=== PATIENT | female | born 1955 | race Caucasian/White ===

== ENCOUNTER 2017-03-28 12:29 | Inpatient (IN) | payer MEDICARE ==
[~2017-03-28] VITALS: Ht 157.5 cm; Wt 81.0 kg
[~2017-03-28 12:29] MED LIST: ACID1TAB7 PO; ALBU8.5H5 INH; AMIT150T PO; CEFD300C37 PO; DOXY100T PO; FLUT1DIS5 IH; GABA300C10 PO; HYDR25TA6 PO; IPRA3AMP NPPB; LEVO500T33 PO; LEVO750T26 PO; LISI1TAB7 PO; LORA-446 PO; LOSA100T6 PO; METH-356 PO; METH750T87 PO; MORP-52 PO; MORP60TA PO; MORP60TA22 PO; NICO1PAT4 TD; OMEP-110 PO; OXYC-229 PO; OXYC10TA6 PO; OXYC1TAB9 PO; OXYGEN INH; POLY17PO5 PO; PRED10TA PO; PRED20TA PO; Prednisone PO; SERT100T PO; TIOT18CA INH; VERA360C2 PO
[2017-03-28] MEDS ORDERED: ALBUTEROL/IPRATROPIUM 2.5MG/0.5MG, 3 ML NPPB ONE (13:30)
[2017-03-28] MEDS ORDERED: SODIUM CHLORIDE FLUSH 10ML SYR IVF ONE (13:30)
[2017-03-28] MEDS ORDERED: SODIUM CHLORIDE 0.9% 1,000ML IVBOLUS ONE (13:30)
[2017-03-28] MEDS ORDERED: MORPHINE SULFATE 4 MG/ML, 1ML IVPush PRN (13:30)
[2017-03-28] MEDS ORDERED: methylPREDNISolone SOD SUCC 125 MG/2 ML IVP ONE (13:30)
[2017-03-28 13:58] LABS: ASPARTATE AMINO TRANSFERASE 11 U/L (15-37); BLOOD UREA NITROGEN 13 mg/dL (7-18)
[2017-03-28] MEDS ORDERED: ALBUTEROL/IPRATROPIUM 2.5MG/0.5MG, 3 ML ONE (14:07)
[2017-03-28] MEDS ORDERED: methylPREDNISolone SOD SUCC 125 MG/2 ML ONE (14:40)
[2017-03-28] MEDS ORDERED: MORPHINE SULFATE 4 MG/ML, 1ML ONE (14:40)
[2017-03-28] MEDS ORDERED: POTASSIUM CHLORIDE 20 MEQ TAB.ER.PRT PO ONE (15:30)
[2017-03-28] MEDS ORDERED: METHADONE 10 MG TABLET PO ONE (15:30)
[2017-03-28] MEDS ORDERED: ALBUTEROL SULFATE 2.5 MG/3 ML NPPB ONE (15:30)
[2017-03-28] MEDS ORDERED: POLYETHYLENE GLYCOL 17 GM PACKET PO PRN (16:30)
[2017-03-28] MEDS ORDERED: ACETAMINOPHEN 325 MG TABLET PO PRN (16:30)
[2017-03-28] MEDS ORDERED: DOCUSATE 100 MG CAPSULE PO PRN (16:30)
[2017-03-28] MEDS ORDERED: FUROSEMIDE 20 MG/2 ML IV ONE (16:30)
[2017-03-28] MEDS ORDERED: GUAIFENESIN/DM 200-20MG, 10ML UDC PO PRN (16:30)
[2017-03-28] MEDS ORDERED: BISACODYL 10 MG SUPP PR PRN (16:30)
[2017-03-28] MEDS ORDERED: ONDANSETRON 2MG/ML, 2ML IVPush PRN (16:30)
[2017-03-28 16:55] VITALS: BP 115/71
[2017-03-28] MEDS: DOXYCYCLINE 100 MG in DEXTROSE 5% 250 ML IV SCH (17:24)
[2017-03-28] MEDS: ENOXAPARIN 40 MG/0.4 ML SQ SCH (17:25)
[2017-03-28] MEDS: methylPREDNISolone SOD SUCC 125 MG/2 ML IVPush SCH ×2 (17:25→23:02)
[2017-03-28 18:33] VITALS: BP 111/72
[2017-03-28] MEDS: OXYcodone/APAP 5/325MG TABLET PO PRN ×2 (18:36→23:09)
[2017-03-28] MEDS: ALBUTEROL/IPRATROPIUM 2.5MG/0.5MG, 3 ML NPPB SCH (19:18)
[2017-03-28] MEDS ORDERED: AMITRIPTYLINE 100 MG TABLET PO SCH (21:00)
[2017-03-28] MEDS: SODIUM CHLORIDE FLUSH 10ML SYR IVF SCH (21:52)
[2017-03-28] MEDS: SERTRALINE 100MG TABLET PO SCH (21:52)
[2017-03-28] MEDS: METHADONE 10 MG TABLET PO PRN (21:52)
[2017-03-28] MEDS: AMITRIPTYLINE 50 MG TABLET PO SCH (21:53)
[2017-03-29 02:56] VITALS: BP 128/76
[2017-03-29] MEDS: methylPREDNISolone SOD SUCC 125 MG/2 ML IVPush SCH ×3 (04:30→18:23)
[2017-03-29] MEDS: DOXYCYCLINE 100 MG in DEXTROSE 5% 250 ML IV SCH ×2 (04:30→15:51)
[2017-03-29] MEDS: OXYcodone/APAP 5/325MG TABLET PO PRN ×4 (04:45→20:09)
[2017-03-29 06:06] LABS: BLOOD UREA NITROGEN 18 mg/dL (7-18)
[2017-03-29] MEDS ORDERED: POTASSIUM CHLORIDE 20 MEQ TAB.ER.PRT PO ONE (07:00)
[2017-03-29 07:02] VITALS: BP 93/62
[2017-03-29] MEDS: ALBUTEROL/IPRATROPIUM 2.5MG/0.5MG, 3 ML NPPB SCH ×4 (07:35→18:18)
[2017-03-29] MEDS ORDERED: POTASSIUM CHLORIDE 20 MEQ TAB.ER.PRT PO SCH (08:00)
[2017-03-29] MEDS ORDERED: SERTRALINE 100MG TABLET PO SCH (09:00)
[2017-03-29] MEDS ORDERED: FUROSEMIDE 20 MG/2 ML IV SCH (09:00)
[2017-03-29] MEDS ORDERED: AMITRIPTYLINE 100 MG TABLET PO SCH (09:00)
[2017-03-29] MEDS: LOSARTAN 50MG TABLET PO SCH (09:08)
[2017-03-29] MEDS: HYDROCHLOROTHIAZIDE 25 MG TABLET PO SCH (09:09)
[2017-03-29] MEDS: SODIUM CHLORIDE FLUSH 10ML SYR IVF SCH ×2 (09:15→22:04)
[2017-03-29] MEDS: METHADONE 10 MG TABLET PO SCH (09:15)
[2017-03-29] MEDS: FLUTICASONE/VILANTEROL 200-25MCG/INH INH SCH (09:15)
[2017-03-29] MEDS ORDERED: NICOTINE 7 MG/24 HR PATCH.TD24 TD SCH (13:00)
[2017-03-29 14:02] VITALS: BP 110/70
[2017-03-29] MEDS ORDERED: NICOTINE 7 MG/24 HR PATCH.TD24 TD ONE (15:30)
[2017-03-29] MEDS: ENOXAPARIN 40 MG/0.4 ML SQ SCH (15:51)
[2017-03-29 19:26] VITALS: BP 107/65
[2017-03-29] MEDS: SERTRALINE 100MG TABLET PO SCH (20:09)
[2017-03-29] MEDS: AMITRIPTYLINE 50 MG TABLET PO SCH (20:09)
[2017-03-29] MEDS: METHADONE 10 MG TABLET PO PRN (22:03)
[2017-03-30] MEDS: methylPREDNISolone SOD SUCC 125 MG/2 ML IVPush SCH ×4 (00:42→18:37)
[2017-03-30] MEDS: OXYcodone/APAP 5/325MG TABLET PO PRN ×5 (00:53→19:52)
[2017-03-30 00:55] VITALS: BP 130/69
[2017-03-30] MEDS: DOXYCYCLINE 100 MG in DEXTROSE 5% 250 ML IV SCH ×2 (05:01→16:49)
[2017-03-30 05:51] LABS: BLOOD UREA NITROGEN 20 mg/dL (7-18)
[2017-03-30] MEDS: ALBUTEROL/IPRATROPIUM 2.5MG/0.5MG, 3 ML NPPB SCH ×4 (07:01→19:12)
[2017-03-30 07:18] VITALS: BP 97/63
[2017-03-30] MEDS: GUAIFENESIN ER 600 MG TABLET PO SCH ×2 (09:03→21:52)
[2017-03-30] MEDS: SODIUM CHLORIDE FLUSH 10ML SYR IVF SCH ×2 (09:03→21:00)
[2017-03-30] MEDS: HYDROCHLOROTHIAZIDE 25 MG TABLET PO SCH (09:04)
[2017-03-30] MEDS: LOSARTAN 50MG TABLET PO SCH (09:04)
[2017-03-30] MEDS: FLUTICASONE/VILANTEROL 200-25MCG/INH INH SCH (09:04)
[2017-03-30] MEDS: METHADONE 10 MG TABLET PO SCH (09:04)
[2017-03-30 13:17] VITALS: BP 119/74
[2017-03-30] MEDS: ENOXAPARIN 40 MG/0.4 ML SQ SCH (16:50)
[2017-03-30] MEDS: NICOTINE 21 MG/24 HR PATCH.TD24 TD SCH (16:50)
[2017-03-30 20:44] VITALS: BP 114/71
[2017-03-30] MEDS: METHADONE 10 MG TABLET PO PRN (21:52)
[2017-03-30] MEDS: SERTRALINE 100MG TABLET PO SCH (21:52)
[2017-03-30] MEDS: AMITRIPTYLINE 50 MG TABLET PO SCH (21:52)
[2017-03-31] MEDS: OXYcodone/APAP 5/325MG TABLET PO PRN ×6 (00:19→23:01)
[2017-03-31] MEDS: methylPREDNISolone SOD SUCC 125 MG/2 ML IVPush SCH ×4 (00:20→18:09)
[2017-03-31 01:34] VITALS: BP 103/66
[2017-03-31] MEDS: DOXYCYCLINE 100 MG in DEXTROSE 5% 250 ML IV SCH ×2 (05:12→18:06)
[2017-03-31 06:03] LABS: BLOOD UREA NITROGEN 21 mg/dL (7-18)
[2017-03-31] MEDS: ALBUTEROL/IPRATROPIUM 2.5MG/0.5MG, 3 ML NPPB SCH ×2 (06:45→20:54)
[2017-03-31 07:54] VITALS: BP 101/65
[2017-03-31] MEDS: METHADONE 10 MG TABLET PO SCH (10:25)
[2017-03-31] MEDS: GUAIFENESIN ER 600 MG TABLET PO SCH ×2 (10:26→20:49)
[2017-03-31] MEDS: HYDROCHLOROTHIAZIDE 25 MG TABLET PO SCH (10:26)
[2017-03-31] MEDS: LOSARTAN 50MG TABLET PO SCH (10:26)
[2017-03-31] MEDS: FLUTICASONE/VILANTEROL 200-25MCG/INH INH SCH (10:26)
[2017-03-31] MEDS: SODIUM CHLORIDE FLUSH 10ML SYR IVF SCH ×2 (10:26→22:03)
[2017-03-31] MEDS: NICOTINE 21 MG/24 HR PATCH.TD24 TD SCH (10:28)
[2017-03-31 15:20] VITALS: BP 106/70
[2017-03-31] MEDS: ENOXAPARIN 40 MG/0.4 ML SQ SCH (16:30)
[2017-03-31] MEDS ORDERED: BISACODYL 10 MG SUPP PR PRN (19:30)
[2017-03-31] MEDS ORDERED: POLYETHYLENE GLYCOL 17 GM PACKET PO PRN (19:30)
[2017-03-31] MEDS ORDERED: DOCUSATE 100 MG CAPSULE PO PRN (19:30)
[2017-03-31] MEDS: MONTELUKAST 10 MG TABLET PO SCH (20:49)
[2017-03-31] MEDS: METHADONE 10 MG TABLET PO PRN (20:49)
[2017-03-31] MEDS: AMITRIPTYLINE 50 MG TABLET PO SCH (20:49)
[2017-03-31] MEDS: SERTRALINE 100MG TABLET PO SCH (20:49)
[2017-03-31 20:51] VITALS: BP 126/81
[2017-04-01] MEDS: methylPREDNISolone SOD SUCC 125 MG/2 ML IVPush SCH ×2 (00:36→06:31)
[2017-04-01 01:21] VITALS: BP 110/67
[2017-04-01] MEDS: OXYcodone/APAP 5/325MG TABLET PO PRN ×5 (05:00→23:43)
[2017-04-01 08:00] VITALS: BP 111/69
[2017-04-01] MEDS: SODIUM CHLORIDE FLUSH 10ML SYR IVF SCH ×2 (09:00→20:52)
[2017-04-01] MEDS: ALBUTEROL/IPRATROPIUM 2.5MG/0.5MG, 3 ML NPPB SCH (09:35)
[2017-04-01] MEDS: FLUTICASONE/VILANTEROL 200-25MCG/INH INH SCH (09:39)
[2017-04-01] MEDS: NICOTINE 21 MG/24 HR PATCH.TD24 TD SCH (09:40)
[2017-04-01] MEDS: LOSARTAN 50MG TABLET PO SCH (09:40)
[2017-04-01] MEDS: GUAIFENESIN ER 600 MG TABLET PO SCH ×2 (09:40→20:53)
[2017-04-01] MEDS: HYDROCHLOROTHIAZIDE 25 MG TABLET PO SCH (09:40)
[2017-04-01] MEDS: METHADONE 10 MG TABLET PO SCH (09:41)
[2017-04-01] MEDS: DOXYCYCLINE 100 MG in DEXTROSE 5% 250 ML IV SCH ×2 (09:43→22:04)
[2017-04-01 14:00] VITALS: BP 109/70
[2017-04-01] MEDS: ENOXAPARIN 40 MG/0.4 ML SQ SCH (16:30)
[2017-04-01 20:05] VITALS: BP 97/63
[2017-04-01] MEDS ORDERED: ALBUTEROL/IPRATROPIUM 2.5MG/0.5MG, 3 ML NPPB PRN (20:30)
[2017-04-01] MEDS: METHADONE 10 MG TABLET PO PRN (20:52)
[2017-04-01] MEDS: AMITRIPTYLINE 50 MG TABLET PO SCH (20:52)
[2017-04-01] MEDS: SERTRALINE 100MG TABLET PO SCH (20:53)
[2017-04-01] MEDS: MONTELUKAST 10 MG TABLET PO SCH (20:53)
[2017-04-02 01:05] VITALS: BP 99/68
[2017-04-02] MEDS: OXYcodone/APAP 5/325MG TABLET PO PRN ×3 (03:33→14:34)
[2017-04-02 08:00] VITALS: BP 92/54
[2017-04-02] MEDS ORDERED: GUAI600T22 PO (08:33)
[2017-04-02] MEDS ORDERED: PRED20TA PO (08:33)
[2017-04-02] MEDS ORDERED: MONT10TA9 PO (08:33)
[2017-04-02] MEDS ORDERED: DOXY100T PO (08:34)
[2017-04-02] MEDS: LOSARTAN 50MG TABLET PO SCH (09:00)
[2017-04-02] MEDS: SODIUM CHLORIDE FLUSH 10ML SYR IVF SCH (09:00)
[2017-04-02] MEDS: METHADONE 10 MG TABLET PO SCH (09:15)
[2017-04-02] MEDS: FLUTICASONE/VILANTEROL 200-25MCG/INH INH SCH (09:16)
[2017-04-02] MEDS: NICOTINE 21 MG/24 HR PATCH.TD24 TD SCH (09:17)
[2017-04-02] MEDS: GUAIFENESIN ER 600 MG TABLET PO SCH (09:18)
[2017-04-02] MEDS: HYDROCHLOROTHIAZIDE 25 MG TABLET PO SCH (09:19)
[2017-04-02] MEDS: DOXYCYCLINE 100 MG in DEXTROSE 5% 250 ML IV SCH (10:28)
[2017-04-02 12:59] VITALS: BP 117/72
== END 2017-04-02 17:00 | disposition home or self-care (01) | DRG 291 ==
LOC: ED 15:08 → EDIP 15:16 → 3NE 16:22 → DCLOUNGE 04-02 16:12
PROVIDERS: ADMIT Hospitalist
DX: I11.0 Hypertensive heart disease with heart failure (principal); J96.21 Acute and chronic respiratory failure with hypoxia; J44.1 Chronic obstructive pulmonary disease with (acute) exacerbation; J98.11 Atelectasis; I50.33 Acute on chronic diastolic (congestive) heart failure; D72.829 Elevated white blood cell count, unspecified; E87.6 Hypokalemia; F17.200 Nicotine dependence, unspecified, uncomplicated; F32.9 Major depressive disorder, single episode, unspecified; T38.0X5A Adverse effect of glucocorticoids and synthetic analogues, initial encounter; F41.9 Anxiety disorder, unspecified; G89.29 Other chronic pain; I27.2 Other secondary pulmonary hypertension; M79.7 Fibromyalgia; I95.9 Hypotension, unspecified; M54.9 Dorsalgia, unspecified; E78.5 Hyperlipidemia, unspecified; M85.80 Other specified disorders of bone density and structure, unspecified site; Z88.8 Allergy status to other drugs, medicaments and biological substances; Z99.81 Dependence on supplemental oxygen; Z90.710 Acquired absence of both cervix and uterus; Z90.89 Acquired absence of other organs; Y92.89 Other specified places as the place of occurrence of the external cause
CPT/HCPCS: 36415; 71010; 80048; 80053; 83735; 85025; 93005; 94640; 96374; 96375; J1650; J7060; J7620; J1940; J2930; J7030; J7512

== ENCOUNTER 2017-10-01 17:19 | Inpatient (IN) | payer MEDICARE ==
[~2017-10-01] VITALS: Ht 157.5 cm; Wt 72.2 kg
[~2017-10-01 17:19] MED LIST changes: +GUAI600T31 PO; -LEVO500T33 PO; +LEVO500T47 PO; +MONT10TA9 PO; +NICO-486 TD; -NICO1PAT4 TD; -OXYC-229 PO; +OXYC-307 PO; -SERT100T PO; +SERT20OR PO
[2017-10-01] MEDS ORDERED: ALBUTEROL/IPRATROPIUM 2.5MG/0.5MG, 3 ML NPPB ONE (17:30)
[2017-10-01] MEDS ORDERED: OXYC10TA6 PO (17:48)
[2017-10-01] MEDS ORDERED: ALBUTEROL/IPRATROPIUM 2.5MG/0.5MG, 3 ML ONE (17:51)
[2017-10-01 18:40] LABS: BASOPHILS # (AUTO) 0.03 x10^3/uL (0-0.1); BASOPHILS % (AUTO) 0 % (0-1); EOSINOPHILS # (AUTO) 0.01 x10^3/uL (0-0.4); EOSINOPHILS % (AUTO) 0 % (1-7); LYMPHOCYTES # (AUTO) 2.36 x10^3/uL (1-3.4); LYMPHOCYTES % (AUTO) 16 % (22-44); MD NO; MEAN CORPUSCULAR HEMOGLOBIN 29.7 pg (27.0-34.8); MEAN CORPUSCULAR HGB CONC 33.6 g/dL (32.4-35.8); MEAN CORPUSCULAR VOLUME 88.4 fL (80-100); MEAN PLATELET VOLUME 8.9 fL (7.4-10.4); MONOCYTES # (AUTO) 0.79 x10^3/uL (0.2-0.8); MONOCYTES % (AUTO) 6 % (2-9); NEUTROPHILS % (AUTO) 78 % (42-75); PLATELET COUNT 336 x10^3/uL (130-400); RED BLOOD COUNT 5.34 x10^6/uL (3.82-5.3); RED CELL DISTRIBUTION WIDTH 13.9 % (9.6-15.2)
[2017-10-01] MEDS ORDERED: OXYcodone/APAP 5/325MG TABLET ONE ×2 (18:44→21:01)
[2017-10-01 18:58] LABS: ALBUMIN 3.8 g/dL (3.4-5.0); ANION GAP 7 mmol/L (5-15); CALCIUM 9.1 mg/dL (8.5-10.1); CHLORIDE 109 mmol/L (98-107); CREATININE 0.69 mg/dL (0.55-1.02)
[2017-10-01] MEDS ORDERED: OXYcodone/APAP 5/325MG TABLET PO ONE ×2 (19:00→21:00)
[2017-10-01 19:02] LABS: TROPONIN I < 0.015 ng/mL (0.000-0.045)
[2017-10-01] MEDS ORDERED: SODIUM CHLORIDE FLUSH 10ML SYR IVF PRN (21:30)
[2017-10-02 00:08] VITALS: BP 151/84
[2017-10-02] MEDS ORDERED: HYDROCHLOROTHIAZIDE 25 MG TABLET PO SCH ×2 (01:30→21:00)
[2017-10-02] MEDS ORDERED: SERTRALINE 100MG TABLET PO SCH ×2 (01:30→21:00)
[2017-10-02] MEDS ORDERED: LOSARTAN 50MG TABLET PO SCH ×2 (01:30→21:00)
[2017-10-02] MEDS ORDERED: LISINOPRIL 20 MG TABLET PO SCH ×2 (01:30→21:00)
[2017-10-02] MEDS ORDERED: OXYcodone IR 5MG TABLET ONE (01:55)
[2017-10-02] MEDS: OXYcodone IR 5MG TABLET PO SCH ×5 (01:57→21:57)
[2017-10-02] MEDS: METHADONE 10 MG TABLET PO SCH ×3 (01:57→21:57)
[2017-10-02] MEDS: AMITRIPTYLINE 50 MG TABLET PO SCH ×2 (02:33→21:58)
[2017-10-02] MEDS: NICOTINE 14MG/24 HR PATCH.TD24 TD SCH (02:35)
[2017-10-02] MEDS ORDERED: OXYcodone IR 5MG TABLET PO SCH (03:00)
[2017-10-02] MEDS ORDERED: ALBUTEROL SULFATE 2.5 MG/3 ML NPPB PRN (03:30)
[2017-10-02] MEDS ORDERED: ALBUTEROL/IPRATROPIUM 2.5MG/0.5MG, 3 ML NPPB SCH (07:00)
[2017-10-02 07:22] VITALS: BP 97/60
[2017-10-02 12:44] VITALS: BP 103/71
[2017-10-02 19:59] VITALS: BP 112/66
[2017-10-03 02:45] VITALS: BP 90/60
[2017-10-03] MEDS: OXYcodone IR 5MG TABLET PO SCH ×3 (03:00→14:48)
[2017-10-03] MEDS: NICOTINE 14MG/24 HR PATCH.TD24 TD SCH (04:05)
[2017-10-03] MEDS: METHADONE 10 MG TABLET PO SCH (09:36)
[2017-10-03 09:40] VITALS: BP 99/59
[2017-10-03 14:50] VITALS: BP 90/60
== END 2017-10-03 16:07 | disposition home or self-care (01) | DRG 191 ==
LOC: ED 20:16 → EDIP 22:37 → 4NOR 23:32 → DCLOUNGE 10-03 16:03
PROVIDERS: ADMIT Internal Medicine; ATTEND Internal Medicine
DX: J44.1 Chronic obstructive pulmonary disease with (acute) exacerbation (principal); F11.20 Opioid dependence, uncomplicated; I11.0 Hypertensive heart disease with heart failure; Z99.81 Dependence on supplemental oxygen; R65.10 Systemic inflammatory response syndrome (SIRS) of non-infectious origin without acute organ dysfunction; I50.9 Heart failure, unspecified; D72.829 Elevated white blood cell count, unspecified; E78.5 Hyperlipidemia, unspecified; G47.00 Insomnia, unspecified; G89.4 Chronic pain syndrome; M79.7 Fibromyalgia; M85.80 Other specified disorders of bone density and structure, unspecified site; Z79.899 Other long term (current) drug therapy; Z87.891 Personal history of nicotine dependence
CPT/HCPCS: 36415; 71046; 80048; 82040; 83605; 83880; 84145; 84484; 85025; 87040; 93005; 94640; J7620; J7512

== ENCOUNTER 2017-11-03 12:26 | Emergency (ER) | payer MEDICARE ==
[~2017-11-03] VITALS: Ht 157.5 cm; Wt 74.6 kg
[2017-11-03] MEDS ORDERED: methylPREDNISolone SOD SUCC 125 MG/2 ML ONE (13:09)
[2017-11-03] MEDS ORDERED: ASPIRIN 81 MG TABLET CHEW ONE (13:29)
[2017-11-03] MEDS ORDERED: ALBUTEROL/IPRATROPIUM 2.5MG/0.5MG, 3 ML NPPB SCH (13:30)
[2017-11-03] MEDS ORDERED: methylPREDNISolone SOD SUCC 125 MG/2 ML IVP ONE (13:30)
[2017-11-03] MEDS ORDERED: ASPIRIN 81 MG TABLET CHEW PO ONE (13:30)
[2017-11-03] MEDS ORDERED: SODIUM CHLORIDE FLUSH 10ML SYR IVF ONE (13:30)
[2017-11-03 13:33] LABS: BASOPHILS # (AUTO) 0.04 x10^3/uL (0-0.1); BASOPHILS % (AUTO) 0 % (0-1); EOSINOPHILS # (AUTO) 0.04 x10^3/uL (0-0.4); EOSINOPHILS % (AUTO) 0 % (1-7); LYMPHOCYTES # (AUTO) 2.29 x10^3/uL (1-3.4); LYMPHOCYTES % (AUTO) 23 % (22-44); MD NO; MEAN CORPUSCULAR VOLUME 88.3 fL (80-100); MEAN PLATELET VOLUME 8.9 fL (7.4-10.4); MONOCYTES # (AUTO) 0.46 x10^3/uL (0.2-0.8); MONOCYTES % (AUTO) 5 % (2-9); NEUTROPHILS # (AUTO) 7.34 x10^3/uL (1.8-6.8); NEUTROPHILS % (AUTO) 72 % (42-75); PLATELET COUNT 348 x10^3/uL (130-400); RED BLOOD COUNT 5.33 x10^6/uL (3.82-5.3); RED CELL DISTRIBUTION WIDTH 14.1 % (9.6-15.2)
[2017-11-03 13:46] LABS: ALANINE AMINOTRANSFERASE 13 U/L (12-78); ALBUMIN 3.9 g/dL (3.4-5.0); ANION GAP 10 mmol/L (5-15); CALCIUM 8.7 mg/dL (8.5-10.1); CHLORIDE 107 mmol/L (98-107); CREATININE 0.67 mg/dL (0.55-1.02)
[2017-11-03 13:50] LABS: ALKALINE PHOSPHATASE 97 U/L (45-117); BILIRUBIN,TOTAL 0.4 mg/dL (0.2-1.0); TOTAL PROTEIN 8.2 g/dL (6.4-8.2)
[2017-11-03 13:54] LABS: INTERNATIONAL NORMALIZED RATIO 0.96 (0.93-1.1); PROTHROMBIN TIME 9.9 Seconds (9.6-11.5)
[2017-11-03] MEDS ORDERED: ALBUTEROL/IPRATROPIUM 2.5MG/0.5MG, 3 ML ONE ×2 (13:54→13:55)
[2017-11-03] MEDS ORDERED: HYDROcodone/APAP 5/325 TABLET ONE ×2 (14:46)
[2017-11-03] MEDS ORDERED: HYDROcodone/APAP 5/325 TABLET PO ONE (15:00)
[2017-11-03 15:36] VITALS: BP 141/84
== END 2017-11-03 15:49 | disposition home or self-care (01) ==
LOC: ED 14:25
DX: J44.1 Chronic obstructive pulmonary disease with (acute) exacerbation (principal); I11.0 Hypertensive heart disease with heart failure; I50.9 Heart failure, unspecified
CPT/HCPCS: 36415; 71045; 80053; 83880; 84484; 85025; 85610; 85730; 87040; 93005; 96374; 99285; J2930

== ENCOUNTER 2018-03-27 12:46 | Observation (INO) | payer MEDICARE ==
[~2018-03-27] VITALS: Ht 162.6 cm; Wt 77.4 kg
[~2018-03-27 12:46] MED LIST changes: +OXYC-432 PO; -OXYC1TAB9 PO; +SERT100T PO; -SERT20OR PO
[2018-03-27 14:07] LABS: BASOPHILS # (AUTO) 0.05 x10^3/uL (0-0.1); BASOPHILS % (AUTO) 0 % (0-1); EOSINOPHILS # (AUTO) 0.04 x10^3/uL (0-0.4); EOSINOPHILS % (AUTO) 0 % (1-7); LYMPHOCYTES # (AUTO) 1.98 x10^3/uL (1-3.4); LYMPHOCYTES % (AUTO) 17 % (22-44); MD NO; MEAN CORPUSCULAR HEMOGLOBIN 30.2 pg (27.0-34.8); MEAN CORPUSCULAR HGB CONC 33.7 g/dL (32.4-35.8); MEAN CORPUSCULAR VOLUME 89.7 fL (80-100); MEAN PLATELET VOLUME 8.8 fL (7.4-10.4); MONOCYTES # (AUTO) 0.48 x10^3/uL (0.2-0.8); MONOCYTES % (AUTO) 4 % (2-9); NEUTROPHILS # (AUTO) 9.18 x10^3/uL (1.8-6.8); NEUTROPHILS % (AUTO) 78 % (42-75); PLATELET COUNT 410 x10^3/uL (130-400); RED BLOOD COUNT 5.14 x10^6/uL (3.82-5.3); RED CELL DISTRIBUTION WIDTH 14.8 % (9.6-15.2)
[2018-03-27 14:20] LABS: ALANINE AMINOTRANSFERASE 13 U/L (12-78); ALBUMIN 3.6 g/dL (3.4-5.0); ANION GAP 6 mmol/L (5-15); CALCIUM 9.2 mg/dL (8.5-10.1); CHLORIDE 108 mmol/L (98-107); CREATININE 0.74 mg/dL (0.55-1.02)
[2018-03-27 14:25] LABS: ALKALINE PHOSPHATASE 95 U/L (45-117); BILIRUBIN,TOTAL 0.5 mg/dL (0.2-1.0); TOTAL PROTEIN 7.5 g/dL (6.4-8.2); TROPONIN I < 0.015 ng/mL (0.000-0.045)
[2018-03-27] MEDS ORDERED: ASPIRIN 81 MG TABLET CHEW PO ONE (15:00)
[2018-03-27] MEDS ORDERED: OXYcodone/APAP 5/325MG TABLET PO ONE (15:00)
[2018-03-27] MEDS ORDERED: ONDANSETRON ODT 4 MG PO ONE (15:00)
[2018-03-27] MEDS ORDERED: OXYcodone/APAP 5/325MG TABLET ONE (15:16)
[2018-03-27] MEDS ORDERED: ASPIRIN 81 MG TABLET CHEW ONE (15:16)
[2018-03-27] MEDS ORDERED: ONDANSETRON ODT 4 MG ONE (15:16)
[2018-03-27 16:00] VITALS: BP 112/74
[2018-03-27] MEDS ORDERED: ENOXAPARIN 40 MG/0.4 ML SQ SCH (16:30)
[2018-03-27] MEDS ORDERED: NICOTINE 21 MG/24 HR PATCH.TD24 TD SCH (16:30)
[2018-03-27] MEDS ORDERED: GUAIFENESIN/DM 200-20MG, 10ML UDC PO PRN (16:30)
[2018-03-27] MEDS ORDERED: ZOLPIDEM 5MG TABLET PO PRN (16:30)
[2018-03-27] MEDS ORDERED: ONDANSETRON ODT 4 MG PO PRN (16:30)
[2018-03-27] MEDS ORDERED: morphine SULFATE 10 MG/ML, 1ML IVPush PRN (16:30)
[2018-03-27] MEDS ORDERED: ACETAMINOPHEN 325 MG TABLET PO PRN (16:30)
[2018-03-27] MEDS ORDERED: AMLODIPINE 5 MG TABLET PO ONE (17:00)
[2018-03-27] MEDS ORDERED: LISINOPRIL 20 MG TABLET PO ONE (17:00)
[2018-03-27] MEDS ORDERED: TEMPLATE NON-FORMULARY MED. (Albuterol Sulfate** (Albuterol Sulfate Hfa**) 2 PUFF(S)) INH PRN (17:00)
[2018-03-27 17:42] LABS: TROPONIN I < 0.015 ng/mL (0.000-0.045)
[2018-03-27 18:04] LABS: HEMOGLOBIN A1C 5.7 % (4.2-6.3)
[2018-03-27 19:50] VITALS: BP 91/64
[2018-03-27] MEDS: METHADONE 10 MG TABLET PO SCH (20:39)
[2018-03-27] MEDS: LACTULOSE 10 GM/15 ML UDC PO SCH (20:39)
[2018-03-27] MEDS: SODIUM CHLORIDE FLUSH 10ML SYR IVF SCH (20:41)
[2018-03-27] MEDS: TEMPLATE NON-FORMULARY MED. (Fluticasone/Salmeterol** (Advair 500-50 Diskus**) 1 PUFF) IH SCH (21:00)
[2018-03-27] MEDS ORDERED: ATORVASTATIN 20 MG TABLET PO SCH (21:00)
[2018-03-27] MEDS ORDERED: SERTRALINE 100MG TABLET PO SCH (21:00)
[2018-03-27] MEDS ORDERED: OXYGEN INH SCH (21:00)
[2018-03-27] MEDS ORDERED: AMIT150T PO (21:03)
[2018-03-27] MEDS ORDERED: AMITRIPTYLINE 50 MG TABLET PO SCH (21:30)
[2018-03-28] VITALS (8 sets, daily range): BP systolic 81–114; BP diastolic 50–70
[2018-03-28 01:22] LABS: TROPONIN I < 0.015 ng/mL (0.000-0.045)
[2018-03-28] MEDS ORDERED: SODIUM CHLORIDE 0.9%, 500ML IVBOLUS ONE (03:00)
[2018-03-28 05:26] LABS: BASOPHILS # (AUTO) 0.16 x10^3/uL (0-0.1); BASOPHILS % (AUTO) 1 % (0-1); EOSINOPHILS # (AUTO) 0.11 x10^3/uL (0-0.4); EOSINOPHILS % (AUTO) 1 % (1-7); LYMPHOCYTES # (AUTO) 3.65 x10^3/uL (1-3.4); LYMPHOCYTES % (AUTO) 29 % (22-44); MD NO; MEAN CORPUSCULAR HEMOGLOBIN 30.4 pg (27.0-34.8); MEAN CORPUSCULAR HGB CONC 33.7 g/dL (32.4-35.8); MEAN CORPUSCULAR VOLUME 90.2 fL (80-100); MEAN PLATELET VOLUME 8.7 fL (7.4-10.4); MONOCYTES # (AUTO) 0.74 x10^3/uL (0.2-0.8); MONOCYTES % (AUTO) 6 % (2-9); NEUTROPHILS # (AUTO) 7.95 x10^3/uL (1.8-6.8); NEUTROPHILS % (AUTO) 63 % (42-75); PLATELET COUNT 328 x10^3/uL (130-400); RED CELL DISTRIBUTION WIDTH 15.1 % (9.6-15.2)
[2018-03-28 05:27] LABS: ALBUMIN 3.1 g/dL (3.4-5.0); ANION GAP 6 mmol/L (5-15); CALCIUM 8.6 mg/dL (8.5-10.1); CHLORIDE 106 mmol/L (98-107)
[2018-03-28 05:30] LABS: ALANINE AMINOTRANSFERASE 14 U/L (12-78); ALKALINE PHOSPHATASE 79 U/L (45-117); BILIRUBIN,TOTAL 0.4 mg/dL (0.2-1.0); CREATININE 1.26 mg/dL (0.55-1.02); TOTAL PROTEIN 6.6 g/dL (6.4-8.2)
[2018-03-28] MEDS: LACTULOSE 10 GM/15 ML UDC PO SCH (09:00)
[2018-03-28] MEDS ORDERED: TEMPLATE NON-FORMULARY MED. (Tiotropium Bromide** (Spiriva**) 18 MCG) INH SCH (09:00)
[2018-03-28] MEDS ORDERED: REGADENOSON 0.4 MG/5 ML SYRINGE ONE (09:00)
[2018-03-28] MEDS ORDERED: LOSARTAN 50MG TABLET PO SCH (09:00)
[2018-03-28] MEDS: TEMPLATE NON-FORMULARY MED. (Fluticasone/Salmeterol** (Advair 500-50 Diskus**) 1 PUFF) IH SCH (09:00)
[2018-03-28] MEDS ORDERED: SPIRONOLACTONE 25 MG TABLET PO SCH (09:00)
[2018-03-28] MEDS ORDERED: SERTRALINE 100MG TABLET PO SCH (09:00)
[2018-03-28] MEDS: METHADONE 10 MG TABLET PO SCH (12:26)
[2018-03-28] MEDS: SODIUM CHLORIDE FLUSH 10ML SYR IVF SCH (12:27)
== END 2018-03-28 16:50 | disposition home or self-care (01) ==
LOC: ED 14:43 → EDIP 14:44 → INTOOBSV 14:44 → ED 15:28 → 5SO 16:35 → DCLOUNGE 03-28 16:39
PROVIDERS: ADMIT Internal Medicine; ATTEND Internal Medicine
DX: R07.9 Chest pain, unspecified (principal); I11.0 Hypertensive heart disease with heart failure; J44.9 Chronic obstructive pulmonary disease, unspecified; I73.9 Peripheral vascular disease, unspecified; I50.9 Heart failure, unspecified; G89.4 Chronic pain syndrome; F17.210 Nicotine dependence, cigarettes, uncomplicated; F11.20 Opioid dependence, uncomplicated; Z79.899 Other long term (current) drug therapy
CPT/HCPCS: 0399T; 36415; 71046; 78452; 80053; 83036; 83880; 84484; 85025; 85379; 93005; 93017; 93306; 93922; 99285; A9502; C9898; G0378; J2785; J7040; Q0162

== ENCOUNTER 2019-07-10 18:42 | Inpatient (IN) | payer MEDICARE ==
[~2019-07-10] VITALS: Ht 160 cm; Wt 79.9 kg
[~2019-07-10 18:42] MED LIST changes: -IPRA3AMP NPPB; +IPRA3AMP30 NPPB; +LISI1TAB20 PO; -LISI1TAB7 PO; +LOSA100T14 PO; -LOSA100T6 PO; -METH-356 PO; +METH10TA2 PO; -MORP60TA PO; +MORP60TA63 PO
[2019-07-10] MEDS ORDERED: ALBUTEROL/IPRATROPIUM 2.5MG/0.5MG, 3 ML NPPB ONE (19:30)
[2019-07-10] MEDS ORDERED: ALBUTEROL/IPRATROPIUM 2.5MG/0.5MG, 3 ML ONE (19:43)
[2019-07-10 19:59] LABS: ALANINE AMINOTRANSFERASE 10 U/L (12-78); ALBUMIN 2.8 g/dL (3.4-5.0); ANION GAP 3 mmol/L (5-15); CALCIUM 8.1 mg/dL (8.5-10.1); CHLORIDE 105 mmol/L (98-107); CREATININE 1.06 mg/dL (0.55-1.02)
[2019-07-10 20:04] LABS: ALKALINE PHOSPHATASE 80 U/L (45-117); BILIRUBIN,TOTAL 0.5 mg/dL (0.2-1.0); TROPONIN I < 0.015 ng/mL (0.000-0.045)
--- NOTE | 2019-07-10 20:05 | NUR ---
rt at bedside-isabella performed
--- NOTE | 2019-07-10 20:29 | NUR ---
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
--- NOTE | 2019-07-10 20:35 | NUR ---
PATIENT REPORTS "THE NEB HELPED ALOT". BREATH SOUNDS AUDIBLE TO ALL IRIZARRY. HOWEVER SOUNDS QUITE COARSE. NO WOB WHILE AT REST. POX 95% PATIENT UPDATED ON ESTIMATED POC
[2019-07-10 20:38] LABS: RAPID INFLUENZA A Negative (Negative); RAPID INFLUENZA B Negative (Negative)
[2019-07-10 20:50] LABS: BASOPHILS # (AUTO) 0.03 x10^3/uL (0-0.1); BASOPHILS % (AUTO) 0 % (0-1); EOSINOPHILS # (AUTO) 0.09 x10^3/uL (0-0.4); EOSINOPHILS % (AUTO) 1 % (1-7); LYMPHOCYTES # (AUTO) 1.98 x10^3/uL (1-3.4); LYMPHOCYTES % (AUTO) 22 % (22-44); MD NO; MEAN CORPUSCULAR HEMOGLOBIN 29.5 pg (27.0-34.8); MEAN CORPUSCULAR HGB CONC 32.8 g/dL (32.4-35.8); MEAN CORPUSCULAR VOLUME 89.9 fL (80-100); MEAN PLATELET VOLUME 9.1 fL (7.4-10.4); MONOCYTES # (AUTO) 0.82 x10^3/uL (0.2-0.8); MONOCYTES % (AUTO) 9 % (2-9); NEUTROPHILS # (AUTO) 6.11 x10^3/uL (1.8-6.8); NEUTROPHILS % (AUTO) 68 % (42-75); PLATELET COUNT 286 x10^3/uL (130-400); RED BLOOD COUNT 4.35 x10^6/uL (3.82-5.3); RED CELL DISTRIBUTION WIDTH 14.5 % (9.6-15.2)
--- NOTE | 2019-07-10 21:07 | NUR ---
URINE SENT PATIENT ASKING FOR PERCOCET (HOME MED) FOR CHRONIC BACK PAIN-RATED AT 7/10. ASKING TO BE ADMITTED WELL. "THEY ALWAYS DISCHARGE ME THENI HAVE TO COME BACK." PROVIDER MADE AWARE. PROVIDER DEFERIING NARCOTIC ADMIN-REPORTS PROBABLE ADMIT PROVIDER TO UPDATE PATIENT ONCE UA RESULTED PATIENT PROVIDER WITH WATER/HALEIGH
--- NOTE | 2019-07-10 21:10 | NUR ---
CONTACT PRECAUTIONS REMOVED WITH INFLUENZA RESULT BEING NEGATIVE
[2019-07-10 21:18] LABS: CULTURE INDICATED? YES; MICROSCOPIC INDICATED
[2019-07-10] MEDS ORDERED: ATOR20TA86 PO (21:32)
[2019-07-10] MEDS ORDERED: SPIR25TA5 PO (21:32)
[2019-07-10] MEDS ORDERED: CARV12.52 PO (21:32)
[2019-07-10] MEDS ORDERED: SODIUM CHLORIDE FLUSH 10ML SYR IVF PRN (22:00)
[2019-07-10 22:10] VITALS: BP 132/79
[2019-07-10] MEDS ORDERED: ENALAPRILAT 1.25 MG/ML, 2ML IVPush PRN (23:00)
[2019-07-10] MEDS: ENOXAPARIN 40 MG/0.4 ML SQ SCH (23:00)
[2019-07-10] MEDS ORDERED: ONDANSETRON 2MG/ML, 2ML IVPush PRN (23:00)
[2019-07-10] MEDS ORDERED: GUAIFENESIN/DM 200-20MG, 10ML UDC PO PRN (23:00)
[2019-07-10] MEDS ORDERED: ACETAMINOPHEN 325 MG TABLET PO PRN (23:00)
[2019-07-10] MEDS ORDERED: ALBUTEROL/IPRATROPIUM 2.5MG/0.5MG, 3 ML NPPB PRN (23:00)
[2019-07-10] MEDS: CEFTRIAXONE PMX 1GM/50ML 50 ML IV SCH (23:41)
[2019-07-11] MEDS: methylPREDNISolone SOD SUCC 125 MG/2 ML IVPush SCH ×4 (00:24→21:58)
[2019-07-11] MEDS ORDERED: OXYcodone 5 MG/5 ML ORAL.SOL UDC PO PRN (01:00)
[2019-07-11] MEDS: AMITRIPTYLINE 75 MG TABLET PO SCH ×2 (01:00→21:59)
[2019-07-11] MEDS ORDERED: AMITRIPTYLINE 50 MG TABLET ONE (01:07)
[2019-07-11] MEDS: SERTRALINE 100MG TABLET PO SCH ×2 (01:13→21:59)
[2019-07-11] MEDS: NICOTINE 21 MG/24 HR PATCH.TD24 TD SCH ×2 (01:14→08:58)
[2019-07-11 02:13] VITALS: BP 117/73
[2019-07-11] MEDS: OXYcodone IR 5MG TABLET PO PRN ×3 (02:17→20:43)
[2019-07-11] MEDS ORDERED: AMIT150T PO (05:28)
[2019-07-11] MEDS ORDERED: SERT100T PO (05:32)
[2019-07-11 06:12] LABS: BASOPHILS # (AUTO) 0.01 x10^3/uL (0-0.1); BASOPHILS % (AUTO) 0 % (0-1); EOSINOPHILS % (AUTO) 0 % (1-7); LYMPHOCYTES # (AUTO) 0.63 x10^3/uL (1-3.4); LYMPHOCYTES % (AUTO) 12 % (22-44); MD NO; MEAN CORPUSCULAR HGB CONC 33.4 g/dL (32.4-35.8); MEAN CORPUSCULAR VOLUME 89.7 fL (80-100); MEAN PLATELET VOLUME 9.2 fL (7.4-10.4); MONOCYTES # (AUTO) 0.09 x10^3/uL (0.2-0.8); MONOCYTES % (AUTO) 2 % (2-9); NEUTROPHILS # (AUTO) 4.51 x10^3/uL (1.8-6.8); NEUTROPHILS % (AUTO) 86 % (42-75); PLATELET COUNT 263 x10^3/uL (130-400); RED BLOOD COUNT 4.62 x10^6/uL (3.82-5.3); RED CELL DISTRIBUTION WIDTH 14.5 % (9.6-15.2)
[2019-07-11 06:22] LABS: ALANINE AMINOTRANSFERASE 10 U/L (12-78); ALBUMIN 2.8 g/dL (3.4-5.0); ANION GAP 4 mmol/L (5-15); CALCIUM 8.8 mg/dL (8.5-10.1); CHLORIDE 106 mmol/L (98-107); CREATININE 0.77 mg/dL (0.55-1.02)
[2019-07-11 06:24] LABS: ALKALINE PHOSPHATASE 79 U/L (45-117); BILIRUBIN,TOTAL 0.4 mg/dL (0.2-1.0); TOTAL PROTEIN 7.3 g/dL (6.4-8.2)
[2019-07-11] MEDS ORDERED: ALBUTEROL/IPRATROPIUM 2.5MG/0.5MG, 3 ML NPPB SCH (07:00)
[2019-07-11] MEDS: METHADONE 10 MG TABLET PO SCH ×2 (08:58→21:59)
[2019-07-11] MEDS: SPIRONOLACTONE 25 MG TABLET PO SCH (08:59)
[2019-07-11] MEDS: CARVEDILOL 12.5 MG TABLET PO SCH (08:59)
[2019-07-11] MEDS ORDERED: SERTRALINE 100MG TABLET PO SCH (09:00)
[2019-07-11 09:02] VITALS: BP 105/63
[2019-07-11] MEDS: ALBUTEROL/IPRATROPIUM 2.5MG/0.5MG, 3 ML HHN SCH ×3 (11:00→19:23)
[2019-07-11] MEDS ORDERED: POTASSIUM CHLORIDE 20 MEQ TAB.ER.PRT PO ONE (11:30)
[2019-07-11 14:07] VITALS: BP 93/58
[2019-07-11 14:10] VITALS: BP 101/57
[2019-07-11 20:30] VITALS: BP 100/62
[2019-07-11] MEDS: ATORVASTATIN 20 MG TABLET PO SCH (22:00)
[2019-07-11] MEDS: ENOXAPARIN 40 MG/0.4 ML SQ SCH (23:00)
[2019-07-12] MEDS: CEFTRIAXONE PMX 1GM/50ML 50 ML IV SCH ×2 (00:03→23:03)
[2019-07-12 00:43] VITALS: BP 105/61
[2019-07-12] MEDS: methylPREDNISolone SOD SUCC 125 MG/2 ML IVPush SCH ×2 (04:17→09:52)
[2019-07-12 06:14] LABS: MEAN CORPUSCULAR HGB CONC 32.8 g/dL (32.4-35.8); MEAN CORPUSCULAR VOLUME 91.4 fL (80-100); PLATELET COUNT 333 x10^3/uL (130-400); RED BLOOD COUNT 4.38 x10^6/uL (3.82-5.3); RED CELL DISTRIBUTION WIDTH 14.2 % (9.6-15.2)
[2019-07-12 06:27] LABS: ANION GAP 5 mmol/L (5-15); CHLORIDE 106 mmol/L (98-107); CREATININE 0.79 mg/dL (0.55-1.02)
[2019-07-12 06:33] LABS: BASOPHILS # (AUTO) 0.16 x10^3/uL (0-0.1); BASOPHILS % (AUTO) 1 % (0-1); EOSINOPHILS # (AUTO) 0.15 x10^3/uL (0-0.4); EOSINOPHILS % (AUTO) 1 % (1-7); LYMPHOCYTES # (AUTO) 0.68 x10^3/uL (1-3.4); LYMPHOCYTES % (AUTO) 5 % (22-44); MD SCAN; MONOCYTES # (AUTO) 0.23 x10^3/uL (0.2-0.8); MONOCYTES % (AUTO) 2 % (2-9); NEUTROPHILS # (AUTO) 12.98 x10^3/uL (1.8-6.8); NEUTROPHILS % (AUTO) 91 % (42-75)
[2019-07-12 06:39] VITALS: BP 102/66
[2019-07-12] MEDS: ALBUTEROL/IPRATROPIUM 2.5MG/0.5MG, 3 ML HHN SCH ×4 (07:35→21:30)
[2019-07-12] MEDS: SPIRONOLACTONE 25 MG TABLET PO SCH (09:00)
[2019-07-12] MEDS: CARVEDILOL 12.5 MG TABLET PO SCH (09:00)
[2019-07-12] MEDS: METHADONE 10 MG TABLET PO SCH ×2 (09:52→20:38)
[2019-07-12] MEDS: NICOTINE 21 MG/24 HR PATCH.TD24 TD SCH (09:52)
[2019-07-12 13:31] VITALS: BP 108/65
[2019-07-12] MEDS ORDERED: methylPREDNISolone SOD SUCC 125 MG/2 ML IVPush SCH (17:00)
[2019-07-12] MEDS: OXYcodone IR 5MG TABLET PO PRN (17:22)
[2019-07-12 18:31] VITALS: BP 108/66
[2019-07-12] MEDS: AMITRIPTYLINE 75 MG TABLET PO SCH (20:37)
[2019-07-12] MEDS: ATORVASTATIN 20 MG TABLET PO SCH (20:38)
[2019-07-12] MEDS: SERTRALINE 100MG TABLET PO SCH (20:38)
[2019-07-12] MEDS: BUDESONIDE 0.5 MG/2 ML INHA INH SCH (21:30)
[2019-07-12] MEDS: ENOXAPARIN 40 MG/0.4 ML SQ SCH (23:00)
[2019-07-12] MEDS: methylPREDNISolone SOD SUCC 40 MG/ML IVPush SCH (23:03)
[2019-07-13 00:24] VITALS: BP 111/73
[2019-07-13] MEDS: OXYcodone IR 5MG TABLET PO PRN ×3 (00:27→17:37)
[2019-07-13] MEDS: methylPREDNISolone SOD SUCC 40 MG/ML IVPush SCH ×4 (05:16→23:09)
[2019-07-13 05:37] LABS: BASOPHILS # (AUTO) 0.01 x10^3/uL (0-0.1); BASOPHILS % (AUTO) 0 % (0-1); EOSINOPHILS # (AUTO) 0.09 x10^3/uL (0-0.4); EOSINOPHILS % (AUTO) 1 % (1-7); LYMPHOCYTES # (AUTO) 0.68 x10^3/uL (1-3.4); LYMPHOCYTES % (AUTO) 5 % (22-44); MD NO; MEAN CORPUSCULAR HEMOGLOBIN 29.5 pg (27.0-34.8); MEAN CORPUSCULAR HGB CONC 33.1 g/dL (32.4-35.8); MEAN PLATELET VOLUME 8.4 fL (7.4-10.4); MONOCYTES # (AUTO) 0.31 x10^3/uL (0.2-0.8); MONOCYTES % (AUTO) 2 % (2-9); NEUTROPHILS # (AUTO) 13.61 x10^3/uL (1.8-6.8); NEUTROPHILS % (AUTO) 93 % (42-75); PLATELET COUNT 382 x10^3/uL (130-400); RED BLOOD COUNT 4.43 x10^6/uL (3.82-5.3); RED CELL DISTRIBUTION WIDTH 14.4 % (9.6-15.2)
[2019-07-13 05:46] LABS: ANION GAP 8 mmol/L (5-15); CALCIUM 8.5 mg/dL (8.5-10.1); CHLORIDE 104 mmol/L (98-107); CREATININE 0.87 mg/dL (0.55-1.02)
[2019-07-13] MEDS: ALBUTEROL/IPRATROPIUM 2.5MG/0.5MG, 3 ML HHN SCH ×4 (07:00→19:30)
[2019-07-13 08:09] VITALS: BP 136/81
[2019-07-13] MEDS: BUDESONIDE 0.5 MG/2 ML INHA INH SCH ×2 (09:00→19:31)
[2019-07-13] MEDS: METHADONE 10 MG TABLET PO SCH ×2 (10:01→20:46)
[2019-07-13] MEDS: CARVEDILOL 12.5 MG TABLET PO SCH (10:01)
[2019-07-13] MEDS: SPIRONOLACTONE 25 MG TABLET PO SCH (10:01)
[2019-07-13] MEDS: NICOTINE 21 MG/24 HR PATCH.TD24 TD SCH (10:02)
[2019-07-13 13:30] VITALS: BP 104/66
[2019-07-13 19:48] VITALS: BP 112/70
[2019-07-13] MEDS: SERTRALINE 100MG TABLET PO SCH (20:46)
[2019-07-13] MEDS: ATORVASTATIN 20 MG TABLET PO SCH (20:46)
[2019-07-13] MEDS: AMITRIPTYLINE 75 MG TABLET PO SCH (20:50)
[2019-07-13] MEDS: ENOXAPARIN 40 MG/0.4 ML SQ SCH (23:09)
[2019-07-13] MEDS: CEFTRIAXONE PMX 1GM/50ML 50 ML IV SCH (23:14)
[2019-07-14 01:00] VITALS: BP 119/77
[2019-07-14] MEDS: methylPREDNISolone SOD SUCC 40 MG/ML IVPush SCH ×3 (05:20→11:48)
[2019-07-14] MEDS: ALBUTEROL/IPRATROPIUM 2.5MG/0.5MG, 3 ML HHN SCH ×2 (07:32→11:00)
[2019-07-14] MEDS: BUDESONIDE 0.5 MG/2 ML INHA INH SCH (07:32)
[2019-07-14] MEDS: SPIRONOLACTONE 25 MG TABLET PO SCH (08:22)
[2019-07-14] MEDS: CARVEDILOL 12.5 MG TABLET PO SCH (08:22)
[2019-07-14] MEDS: NICOTINE 21 MG/24 HR PATCH.TD24 TD SCH (08:22)
[2019-07-14] MEDS: METHADONE 10 MG TABLET PO SCH (08:23)
[2019-07-14 08:25] VITALS: BP 113/68
[2019-07-14 12:05] VITALS: BP 117/73
[2019-07-14] MEDS ORDERED: PRED20TA PO (14:43)
[2019-07-14] MEDS ORDERED: NICO-487 TD (14:44)
== END 2019-07-14 15:07 | disposition home or self-care (01) | DRG 191 ==
LOC: ED 21:36 → 3N 22:00
PROVIDERS: ADMIT Internal Medicine; ATTEND Internal Medicine
DX: J44.0 Chronic obstructive pulmonary disease with (acute) lower respiratory infection (principal); N39.0 Urinary tract infection, site not specified; F11.20 Opioid dependence, uncomplicated; J96.10 Chronic respiratory failure, unspecified whether with hypoxia or hypercapnia; J44.1 Chronic obstructive pulmonary disease with (acute) exacerbation; E78.5 Hyperlipidemia, unspecified; F17.200 Nicotine dependence, unspecified, uncomplicated; G89.29 Other chronic pain; I16.0 Hypertensive urgency; I73.9 Peripheral vascular disease, unspecified; F41.9 Anxiety disorder, unspecified; M79.7 Fibromyalgia; I10 Essential (primary) hypertension; Z79.899 Other long term (current) drug therapy; Z99.81 Dependence on supplemental oxygen; Z90.710 Acquired absence of both cervix and uterus; Z90.89 Acquired absence of other organs; Z79.51 Long term (current) use of inhaled steroids; Z88.8 Allergy status to other drugs, medicaments and biological substances; Z82.5 Family history of asthma and other chronic lower respiratory diseases; J20.9 Acute bronchitis, unspecified
CPT/HCPCS: 36415; 36600; 71045; 71275; 80048; 80053; 81001; 82803; 83605; 83880; 84145; 84484; 85025; 87040; 87086; 87400; 93005; 93306; 94640; G0378; J0696; J7620; J7626; J2920; J2930; J7512

== ENCOUNTER → 2021-06-07 | Outpatient (CLI) | payer MEDICARE ==
[~2021-06-07] VITALS: Ht 157.5 cm; Wt 65.0 kg
[~2021-06-07] MED LIST changes: +ACET325T26 PO; +AMLO5TAB4 PO; +ATOR20TA86 PO; +BISA10SU4 PR; +CARV12.52 PO; +CYCL10TA2 PO; +ENOX40SY4 SQ; +LISI-170 PO; +LISI20TA21 PO; +MELA5TAB14 PO; +MONT10TA17 PO; -MONT10TA9 PO; +NICO-587 TD; +ONDA4TAB13 PO; -OXYC-307 PO; -OXYC-432 PO; +OXYC-501 PO; +OXYC1TAB18 PO; +OXYC5TAB98 PO; +PANT40TA6 PO; +PRAZ2CAP2 PO; +SENN-211 PO; +SPIR25TA5 PO; +TERB250T14 PO; +[UNRECOGNIZED DRUG - CODE] PO
[2021-06-07 14:18] LABS: BASOPHILS % (AUTO) 1 % (0-1); EOSINOPHILS % (AUTO) 1 % (1-7); LYMPHOCYTES % (AUTO) 19 % (22-44); MEAN CORPUSCULAR HGB CONC 33.9 g/dL (32.4-35.8); MEAN PLATELET VOLUME 7.3 fL (7.4-10.4); MONOCYTES % (AUTO) 6 % (2-9); NEUTROPHILS % (AUTO) 73 % (42-75); PLATELET COUNT 363 x10^3/uL (130-400); RED BLOOD COUNT 4.16 x10^6/uL (3.82-5.3); RED CELL DISTRIBUTION WIDTH 13.7 % (9.6-15.2)
[2021-06-07 14:28] LABS: ALANINE AMINOTRANSFERASE 16 U/L (12-78); ALBUMIN 3.4 g/dL (3.4-5.0); ANION GAP 6 mmol/L (5-15); CALCIUM 9.2 mg/dL (8.5-10.1); CHLORIDE 104 mmol/L (98-107)
[2021-06-07 14:31] LABS: ALKALINE PHOSPHATASE 110 U/L (45-117); BILIRUBIN,TOTAL 0.5 mg/dL (0.2-1.0); CREATININE 0.79 mg/dL (0.55-1.02); TOTAL PROTEIN 7.9 g/dL (6.4-8.2)
== END | disposition home or self-care (01) ==
LOC: STAR 08:00 → EDSTATUS 06-09 10:30
PROVIDERS: ATTEND Orthopaedic Surgery
DX: Z01.818 Encounter for other preprocedural examination (principal); Z20.822 Contact with and (suspected) exposure to COVID-19; I45.10 Unspecified right bundle-branch block; R00.0 Tachycardia, unspecified; M16.12 Unilateral primary osteoarthritis, left hip
CPT/HCPCS: 36415; 80053; 85025; 87081; 93005; U0003; U0005